=== PATIENT | male | born 1980 | race Caucasian/White ===

== ENCOUNTER 2016-11-25 13:07 | Emergency (ER) | payer BC ==
[~2016-11-25] VITALS: Ht 165.1 cm; Wt 87.3 kg
[2016-11-25 14:07] LABS: COLOR RED ((YELLOW))
[2016-11-25 14:08] LABS: ADD MIUA? YES; BILIRUBIN NEGATIVE; BLOOD LARGE; GLUCOSE (STRIP) NEGATIVE; KETONES NEGATIVE; LEUKOCYTES NEGATIVE; NITRITE NEGATIVE; PROTEIN (STRIP) 100; SPECIFIC GRAVITY 1.022 (1.000-1.030); UROBILINOGEN 0.2 MG/DL (0.2-1.0)
[2016-11-25 14:10] LABS: RED BLOOD CELLS TNTC /HPF (0-5)
[2016-11-25 14:32] LABS: UCUL ADDED? NO
[2016-11-25 15:34] LABS: CHLORIDE 106 mEq/L (99-109); POTASSIUM 3.6 mEq/L (3.7-5.4); SODIUM 140 mEq/L (136-147)
[2016-11-25 15:35] LABS: GLUCOSE 89 mg/dL (70-99)
[2016-11-25 15:37] LABS: ANION GAP 8 MEQ/L (2-14)
[2016-11-25 15:39] LABS: GFR ESTIMATE (CALCULATED) > 59 mL/min/
[2016-11-25 15:40] LABS: UREA NITROGEN (BUN) 10 mg/dL (9-23)
[2016-11-25 15:54] LABS: HEMATOCRIT 39.6 % (38.0-50.0); MCH 29.7 PG (29.0-34.0); MCHC 35.9 G/DL (30.0-36.0); MCV 82.8 FL (86-99); MEAN PLAT.VOLUME 9.7 uM^3 (9.0-12.4); PLATELET COUNT 213 K/uL (156-360); RBC DIS.WIDTH-CV 12.5 % (11.8-14.6); RBC DIS.WIDTH-SD 37.9 % (39-53); RED BLOOD COUNT 4.78 M/uL (4.00-5.50); WHITE BLOOD COUNT 5.6 K/uL (4.1-10.2)
[2016-11-25] MEDS ORDERED: COZAAR25 MG PO (15:58)
[2016-11-25 16:43] VITALS: BP 151/87
== END 2016-11-25 17:17 | disposition home or self-care (01) ==
LOC: EME 13:07
PROVIDERS: Physician Assistant Medical
DX: N20.0 Calculus of kidney (principal); R31.9 Hematuria, unspecified; I10 Essential (primary) hypertension
CPT/HCPCS: 74176; 80048; 81003; 85027; 99281; 99284

== ENCOUNTER 2017-05-10 05:05 | Emergency (ER) | payer BC ==
[~2017-05-10] VITALS: Ht 167.6 cm; Wt 87.1 kg
[~2017-05-10 05:05] MED LIST: COZAAR25 MG PO
[2017-05-10 05:34] LABS: EOSINOPHIL COUNT 0.1 K/uL (0-0.3); HEMATOCRIT 43.1 % (38.0-50.0); IMMATURE GRANULOCYTE (%) 1.3 % (0.0-0.7); IMMATURE GRANULOCYTE COUNT 0.1 K/uL; INSTRUMENT ABS NEUTROPHIL CT 5.3 K/uL; LYMPHOCYTE COUNT 1.8 K/uL (1.0-2.8); MCH 29.4 PG (29.0-34.0); MCHC 35.5 G/DL (30.0-36.0); MCV 82.9 FL (86-99); MEAN PLAT.VOLUME 9.4 uM^3 (9.0-12.4); MONOCYTE (%) 5.4 % (3-12); MONOCYTE COUNT 0.4 K/uL (0-0.8); NEUTROPHIL (%) 68.1 % (45-76); NEUTROPHIL COUNT 5.3 K/uL (1.8-6.4); PLATELET COUNT 249 K/uL (156-360); RBC DIS.WIDTH-SD 35.9 % (39-53); WHITE BLOOD COUNT 7.8 K/uL (4.1-10.2)
[2017-05-10 05:36] LABS: CHLORIDE 104 mEq/L (99-109); POTASSIUM 4.4 mEq/L (3.7-5.4); SODIUM 138 mEq/L (136-147)
[2017-05-10 05:38] LABS: GLUCOSE 177 mg/dL (70-99)
[2017-05-10 05:39] LABS: ANION GAP 9 MEQ/L (2-14)
[2017-05-10 05:41] LABS: GFR ESTIMATE (CALCULATED) > 59 mL/min/
[2017-05-10 05:42] LABS: UREA NITROGEN (BUN) 16 mg/dL (9-23)
[2017-05-10] MEDS ORDERED: CIPRO500 MG PO (06:23)
[2017-05-10] MEDS ORDERED: NAPROSYN500 MG PO (06:23)
[2017-05-10] MEDS ORDERED: PERCOCET 5/31 TABLET PO (06:23)
[2017-05-10] MEDS ORDERED: FLOMAX0.4 MG PO (06:23)
[2017-05-10] MEDS ORDERED: ZOFRAN4 MG PO (06:23)
[2017-05-10 06:46] VITALS: BP 141/90
[2017-05-10 06:47] LABS: ADD MIUA? YES; BILIRUBIN NEGATIVE; BLOOD LARGE; COLOR AMBER ((YELLOW)); GLUCOSE (STRIP) NEGATIVE; KETONES NEGATIVE; LEUKOCYTES NEGATIVE; NITRITE NEGATIVE; PROTEIN (STRIP) 100; SPECIFIC GRAVITY 1.021 (1.000-1.030); UROBILINOGEN 0.2 MG/DL (0.2-1.0)
[2017-05-10 06:52] LABS: BACTERIA 1+ /HPF; EPITHELIAL CELLS NONE SEEN /HPF; MUCUS 2+ /LPF; RED BLOOD CELLS TNTC /HPF (0-5); UCUL ADDED? NO; WHITE BLOOD CELLS 0-5 /HPF (0-5)
== END 2017-05-10 06:48 | disposition home or self-care (01) ==
LOC: EME 05:05
PROVIDERS: Emergency Medicine
DX: N20.0 Calculus of kidney (principal); I10 Essential (primary) hypertension; Z87.442 Personal history of urinary calculi
CPT/HCPCS: 74176; 80048; 81003; 85025; 87086; 99281; 99284; J1885; J2270; J2405; J7030